=== PATIENT | male | born 1990 | race Caucasian/White ===

== ENCOUNTER 2021-08-23 13:54 | Emergency (ER) | payer OTHER, SELFPAY ==
[2021-08-23 13:59] VITALS: BP 126/83; PULSE 87; RESP 16; TEMP 36.3; O2SAT 99; BMI 25.1
--- NOTE | 2021-08-23 14:32 | CRLHL7_ITS ---
For Patients: As a result of the Century Cures Act, medical imaging exams and procedure reports are released immediately into your electronic medical record. You may view this report before your referring provider. If you have questions, please contact your health care provider. INDICATION: LEFT TESTICULAR PAIN COMPARISON: none TECHNIQUE: Freedman scale imaging was performed of the scrotum. In addition color Doppler and spectral Doppler analysis was performed of the testes. FINDINGS: Blood flow is present to both testicles. No evidence of torsion. Left testicle measures 5.1 x 2.5 x 3.3 cm and right testicle measures 4.9 x 2.7 x 3.5 cm. There is a somewhat ill-defined area of mixed echogenicity within the superior pole of the left testicle which measures 1.8 x 1.0 x 1.6 cm. This may extend beyond the margin of the testicle. The left epididymis is heterogeneous and enlarged measuring 1.8 by 1.1 x 1.3 cm. The epididymal head echotexture is heterogeneous. There is a mild complex hydrocele adjacent to the left epididymal head. Small epididymal cysts are present within the right epididymis. Normal right testicular echotexture. No varicocele. IMPRESSION: 1.8 cm left intra testicular mass like area with possible extension beyond the testicle. The adjacent epididymal head on the left is abnormal and there is a mild complex left hydrocele. Differential diagnosis includes epididymal orchitis with left intratesticular abscess/inflammation with inflammatory changes involving the epididymal head and inflammatory left hydrocele. However, intra testicular malignancy is not excluded. A urology consultation is recommended. No torsion. Dictated by Kody Sears MD @ 08/23/2021 3:35:50 PM (Electronically Signed)
--- NOTE | 2021-08-23 14:35 | ED.NURSE ---
Pt unable to provide UA at this time. Requesting water. Okayed with and brought to pt.
[2021-08-23 15:17] VITALS: BP 121/78; PULSE 83; RESP 18; O2SAT 97
[2021-08-23 15:25] LABS: Appearance Urine Clear (Clear); Bilirubin Urine Negative (Negative); Blood Urine Negative (Negative); Color Urine Yellow (Yellow); Glucose Urine Negative (Negative); Ketones Urine Negative (Negative); Leukocyte Esterase Urine Negative (Negative); Nitrite Urine Negative (Negative); Protein Urine Negative (Negative); Specific Gravity Urine >= 1.030 (1.000-1.030); Urobilinogen Urine 0.2 (0.2-1.0); pH Urine 5.5 (5.0-8.5)
--- NOTE | 2021-08-23 16:44 | ED_ITS ---
HPI - General Adult General Date Seen: 08/23/21 Chief complaint: Urogenital Problems, Male Stated complaint: Redness, swelling in testicles Time Seen by Provider: 08/23/21 14:19 Source: patient History of Present Illness HPI narrative: Patient is a 30-year-old male who presents with left testicular pain which started for 5 days ago. Denies any trauma. He has not had any new sexual partners or discharge. He denies any urinary symptoms such as dysuria, frequency or urgency. No hematuria. He has not had ever had testicular pain like this. He has not noted any redness or swelling. He does have some concerns as there is a strong family history of cancer on his mom's side, but he has not noted any previous masses or other abnormalities. It is extremely tender to the touch, and he has pain when he goes from sitting to standing, primarily because of the fact that the testicle is bumped in the process. He has not noted a specific area of the testicle that seems more tender. He has tried ibuprofen which has not seemed to make any difference in the pain, so he stopped taking it. No fevers, chills, or other systemic symptoms. No abdominal pain or adenopathy in the groin. Related Data Home Medications Medication Instructions Recorded Confirmed aspirin 81 mg capsule 81 mg PO DAILY 08/23/21 08/23/21 Allergies Allergy/AdvReac Type Severity Reaction Status Date / Time minocycline Allergy Severe bronchospam Verified 08/23/21 14:06 tetracycline Allergy Severe brochospasm Verified 08/23/21 14:06 Review of Systems Status of ROS: Reports: 10 or more systems reviewed and unremarkable except as noted in History and below [facility] Social History Smoking Status: Never smoker Second hand tobacco smoke exposure: No How often do you have a drink containing alcohol: monthly or less How often do you have six or more drinks on one occasion: Never AUDIT-C Alcohol total score: 1 Non-prescribed substance use: denies use Exam Narrative: Exam Narrative: Vital signs as noted below. In general, an alert, well-appearing patient. Head: Normocephalic, atraumatic. Eyes: Pupils are equal reactive. Extraocular movements are full. Conjunctivae are normal. ENT: Mucous membranes are moist. Throat is normal. Neck: Supple without lymphadenopathy. Heart: Regular rate and rhythm. No murmur or rub. Lungs: Clear bilaterally. No increased work of breathing, crackles or wheezes. Abdomen: Soft and nontender. No organomegaly. : Penis is normal in appearance without rash or lesion, no discharge. Scrotum is normal without erythema. No significant edema. Testes are normal in appearance without significant asymmetry. Significant tenderness diffusely throughout the left testicle. No obvious masses within limitations of exam given significant tenderness. No obvious hydrocele or varicocele. Extremities: Well perfused. No edema. No calf tenderness. Pulses intact. Neurologic: Patient is alert and oriented to person and place. Speech is fluent. Face is symmetric. Moves all extremities equally. Affect: Normal. Skin: Warm and dry. Well perfused. Const: Vital Signs, click to edit/add: Vital Signs - 24 hr 08/23/21 13:59 08/23/21 15:17 Temperature 97.4 F L Pulse Rate [Pulse Oximeter] 87 83 Respiratory Rate 16 18 Blood Pressure [Ri ght Upper Arm] 126/83 121/78 Pulse Oximetry 99 97 Course Course Hospital Course: We obtained urinalysis which was entirely negative. Went on to have a scrotal ultrasound which is read by Radiology showing no evidence of torsion. He has a 1.8 cm left intratesticular mass like area read as possible epididymal orchitis with abscess or inflammation, inflammatory changes involving the epididymal head and inflammatory left hydrocele. Intra testicular malignancy not excluded. Urology consultation was recommended. I talked with Dr. Muniz at [facility]. I did have to call twice, it took over an hour for him to call back. I reviewed the radiology report with him and discussed the patient's presentation. He felt that it was likely epididymo-orchitis and that patient should be discharged on antibiotics with clinic follow-up if he did not improve. I recommend the patient be seen in follow-up regardless just to make sure that he resolves, particularly given his concerns because of his strong family history of cancer. I think it is reasonable just to make sure that this entirely clears up. This appointment can be anytime in the next month or so. However, if he does not improve with antibiotics he should be seen more urgently. If he worsens, return to the ER. Urology had recommended doxycycline, however, patient notes that he had exercised induced bronchospasm as a teenager, he was on tetracycline and minocycline for acne and says that when he discontinued that, over the next 6 months or so his bronchospasm improved. Therefore, he does not wish to be on doxycycline as he was told that he had an allergy to tetracycline. Will prescribe Levaquin instead. Oxycodone if needed for pain. Vital Signs Vital signs: Initial Vital Signs Temperature 97.4 F L 08/23/21 13:59 Temperature Source Temporal Artery Scan 08/23/21 13:59 Pulse Rate 87 08/23/21 13:59 Respiratory Rate 16 08/23/21 13:59 Blood Pressure 126/83 08/23/21 13:59 Blood Pressure Mean 97 08/23/21 13:59 Blood Pressure Position Sitting 08/23/21 13:59 Pulse Oximetry 99 08/23/21 13:59 Oxygen Delivery Method 08/23/21 13:59 Vital Signs Temperature 97.4 F L 08/23/21 13:59 Pulse Rate 87 08/23/21 13:59 Respiratory Rate 16 08/23/21 13:59 Blood Pressure 126/83 08/23/21 13:59 Pulse Oximetry 99 08/23/21 13:59 Temperature 97.4 F L 08/23/21 13:59 Pulse Rate 83 08/23/21 15:17 Respiratory Rate 18 08/23/21 15:17 Blood Pressure 121/78 08/23/21 15:17 Pulse Oximetry 97 08/23/21 15:17 Medical Decision Making Lab Data Labs: Lab Results 08/23/21 Range/Units 15:14 Urine Color Yellow (Yellow) Urine Appearance Clear (Clear) Urine pH 5.5 (5.0-8.5) Ur Specific [place] >= 1.030 (1.000-1.030) Urine Protein Negative (Negative) Urine Glucose (UA) Negative (Negative) Urine Ketones Negative (Negative) Urine Blood Negative (Negative) Urine Nitrite Negative (Negative) Urine Bilirubin Negative (Negative) Urine Urobilinogen 0.2 (0.2-1.0) Ur Leukocyte Esterase Negative (Negative) Discharge Plan Discharge Clinical Impression: Orchitis and epididymitis Patient Disposition: Home, Self-Care Condition: Stable Instructions: Epididymo-Orchitis (ED) Additional Instructions: Antibiotic as prescribed. Recommend urology follow-up to ensure resolution. You can make a follow-up appointment at the [facility], . Assuming your symptoms improve over the next few days with the antibiotic, this appointment can be anytime in the next month or so. If your symptoms do not improve over the next few days, you should be seen more urgently. In this case, you may need to be seen at a different clinic. If you worsen rather than improve, if you have more severe pain, new symptoms such as fever, vomiting, developed swelling, redness, or other changes, return to the emergency department. Prescriptions: No Action aspirin 81 mg capsule 81 mg PO DAILY 0RF Follow Up/Referrals: Bob Betancourt MD [Primary Care Provider] - Stand Alone Forms: [employer] Info Instructions
== END 2021-08-23 17:26 | disposition home or self-care (01) ==
PROVIDERS: Emergency Provider Emergency Medicine; PCP Family Medicine
DX: N45.3 Epididymo-orchitis (principal)
CPT/HCPCS: 76870; 81003; 93976; 99283; 99284